=== PATIENT | male | born 1975 | race Caucasian/White ===

== ENCOUNTER 2017-07-06 18:08 | Emergency (ER) | payer BC ==
[~2017-07-06] VITALS: Ht 188 cm; Wt 155.0 kg
[2017-07-06 18:25] VITALS: TEMP 36.8; Ht 188 cm; Wt 155.0 kg
[2017-07-06] MEDS ORDERED: NEBI10TA2 PO (19:46)
--- NOTE | 2017-07-06 19:55 | EMERGENCY ROOM VISIT NOTE ---
History Report prepared by Leeanne: Luzma Duenas Under the Supervision of: Dr. Anuj Ingram M.D. First contact with patient: 19:16 Chief Complaint: CONSTIPATION Stated Complaint: POSSIBLE BOWEL BLOCKAGE Nursing Triage Summary: patient states he was dx at [facility] with diverticulitis on wednesday. patient c/o nausea abdominal pain and diarrhea. "I feel like I may be blocked" History of Present Illness The patient is a 42 year old male with a past medical history of Diverticulitis who presents to the ED with a cc of an episode of constipation beginning a week ago. The patient states he went to [facility] a week ago to treat a diverticulitis fare up and they put him on two antibiotics. He notes he has still been having 1-2 bowel movements a day, but that the sizing is very tiny. He notes he has tried stool softeners with no relief. Positive diarrhea, melena, and flank pain when trying to defecate. Negative nausea and vomiting. Patient's records were obtained and results of his CT of his Abdomen and Pelvis are below. Mild sigmoid diverticulitis without evidence of perforation or other complication. No other acute process seen in the abdomen or pelvis. Hepatic steatosis. Source of History: patient Onset: a week ago Position: other (global) Quality: other (global) Timing: other (episode) Associated Symptoms: + melena, + diarrhea, No nausea, No vomiting Note: The patient complains of flank pain when trying to defecate. Review of Systems See HPI for pertinent positives and negatives. A total of ten systems were reviewed and were otherwise negative. Past Medical & Surgical Medical Problems: (1) Diverticulitis (2) HTN (hypertension) Surgical Problems: (1) H/O hernia repair Family History Patient reports no known family medical history. Social History Smoking Status: Former Smoker Smokeless Tobacco Use: Yes Alcohol Use: occasionally Drug Use: none Marital Status: single Housing Status: lives alone Current/Historical Medications Scheduled Dicyclomine Hcl (Bentyl), 20 MG PO QD Nebivolol Hcl (Bystolic), 10 MG PO DAILY Allergies Coded Allergies: No Known Allergies (Unverified , 07/06/17) Physical Exam Vital Signs Date Time Temp Pulse Resp B/P (MAP) Pulse Ox O2 Delivery O2 Flow Rate FiO2 07/06/17 21:53 62 17 155/103 97 Room Air 07/06/17 20:12 65 07/06/17 20:07 65 18 142/96 95 Room Air 07/06/17 18:25 36.8 68 20 165/102 97 Room Air Physical Exam GENERAL: Awake, alert, well-appearing, NAD HENT: Normocephalic, atraumatic. EYES: Normal conjunctiva. Sclera non-icteric. NECK: Supple. No nuchal rigidity. FROM. RESPIRATORY: CTAB, no rhonchi, wheezing, crackles CARDIAC: RRR, no MRG ABDOMEN: Soft, NTND, BS+, no masses RECTAL: No masses palpated, no impaction, no hemorrhoids, no fissures, Hemoccult negative. MSK: No chest wall TTP, no LE edema NEURO: GCS 15, CN 2-12 intact, moves all 4s on command SKIN: No rash or jaundice noted. Medical Decision & Procedures ER Provider Diagnostic Interpretation: Radiology results as stated below per my review and radiologist interpretation: ABDOMEN 2VIEW W/PA CHEST RTN CLINICAL HISTORY: 42 years-old Male presenting with ABDOMINAL PAIN/GI. TECHNIQUE: PA view of the chest and supine and upright views of the abdomen were obtained. COMPARISON: None. FINDINGS: Cardiomediastinal silhouette normal. Lungs and pleural spaces clear. No calcifications project over the renal shadows. Multiple phleboliths noted. Normal bowel gas pattern. No evidence of free intraperitoneal gas, pneumatosis, or portal venous gas. Osseous structures normal. IMPRESSION: 1. No acute cardiopulmonary disease. No radiographic evidence of acute intra-abdominal pathology. Electronically signed by: Madhu Milligan M.D. 07/06/2017 8:53 PM Dictated Date/Time: 07/06/2017 8:52 PM Laboratory Results 07/06/17 19:50 Red Blood Count 5.31, Mean Corpuscular Volume 93.8, Mean Corpuscular Hemoglobin 30.9, Mean Corpuscular Hemoglobin Concent 32.9, Mean Platelet Volume 10.9, Neutrophils (%) (Auto) 64.4, Lymphocytes (%) (Auto) 24.2, Monocytes (%) (Auto) 8.3, Eosinophils (%) (Auto) 2.1, Basophils (%) (Auto) 0.6, Neutrophils # (Auto) 5.14, Lymphocytes # (Auto) 1.93, Monocytes # (Auto) 0.66, Eosinophils # (Auto) 0.17, Basophils # (Auto) 0.05 07/06/17 19:50 Test 07/06/17 19:45 07/06/17 19:50 Urine Color YELLOW Urine Appearance CLEAR (CLEAR) Urine pH 5.5 (4.5-7.5) Urine Specific [place] 1.018 (1.000-1.030) Urine Protein NEG (NEG) Urine Glucose (UA) NEG (NEG) Urine Ketones NEG (NEG) Urine Occult Blood NEG (NEG) Urine Nitrite NEG (NEG) Urine Bilirubin NEG (NEG) Urine Urobilinogen NEG (NEG) Urine Leukocyte Esterase SMALL (NEG) Urine WBC (Auto) 1-5 /hpf (0-5) Urine RBC (Auto) 0-4 /hpf (0-4) Urine Hyaline Casts (Auto) 1-5 /lpf (0-5) Urine Epithelial Cells (Auto) 0-5 /lpf (0-5) Urine Bacteria (Auto) NEG (NEG) White Blood Count 7.98 K/uL (4.8-10.8) Red Blood Count 5.31 M/uL (4.7-6.1) Hemoglobin 16.4 g/dL (14.0-18.0) Hematocrit 49.8 % (42-52) Mean Corpuscular Volume 93.8 fL (80-100) Mean Corpuscular Hemoglobin 30.9 pg (25-34) Mean Corpuscular Hemoglobin Concent 32.9 g/dl (32-36) Platelet Count 260 K/uL (130-400) Mean Platelet Volume 10.9 fL (7.4-10.4) Neutrophils (%) (Auto) 64.4 % Lymphocytes (%) (Auto) 24.2 % Monocytes (%) (Auto) 8.3 % Eosinophils (%) (Auto) 2.1 % Basophils (%) (Auto) 0.6 % Neutrophils # (Auto) 5.14 K/uL (1.4-6.5) Lymphocytes # (Auto) 1.93 K/uL (1.2-3.4) Monocytes # (Auto) 0.66 K/uL (0.11-0.59) Eosinophils # (Auto) 0.17 K/uL (0-0.5) Basophils # (Auto) 0.05 K/uL (0-0.2) RDW Standard Deviation 40.7 fL (36.4-46.3) RDW Coefficient of Variation 12.0 % (11.5-14.5) Immature Granulocyte % (Auto) 0.4 % Immature Granulocyte # (Auto) 0.03 K/uL (0.00-0.02) Anion Gap 6.0 mmol/L (3-11) Est Creatinine Clear Calc Drug Dose 128.9 ml/min Estimated GFR () 87.1 Estimated GFR (Non- 75.2 BUN/Creatinine Ratio 11.7 (10-20) Calcium Level 9.8 mg/dl (8.5-10.1) Total Bilirubin 0.4 mg/dl (0.2-1) Direct Bilirubin < 0.1 mg/dl (0-0.2) Aspartate Amino Transf (AST/SGOT) 46 U/L (15-37) Alanine Aminotransferase (ALT/SGPT) 52 U/L (12-78) Alkaline Phosphatase 58 U/L (45-117) Total Protein 8.4 gm/dl (6.4-8.2) Albumin 4.0 gm/dl (3.4-5.0) Lipase 386 U/L (73-393) Laboratory results reviewed by me Medications Administered Medications (Trade) Dose Ordered Sig/Kasey Route Start Time Stop Time Status Last Admin Dose Admin Sodium Chloride 1,000 ml @ 999 mls/hr Q1H1M STAT IV 07/06/17 19:37 07/06/17 20:37 DC 07/06/17 20:07 999 MLS/HR Dicyclomine HCl (Bentyl Tab) 20 mg ONE STAT PO 07/06/17 19:37 07/06/17 19:39 DC 07/06/17 20:06 20 MG ED Course 1928: The patient was evaluated in room C11B. A complete history and physical exam was performed. 2218: I reevaluated the patient. Discussed results and discharge instructions: he verbalized understanding and agreement. The patient is ready for discharge. Medical Decision Differential diagnoses include diverticulitis, UTI, mass, constipation, medication side effects, impaction. Patient was seen and evaluated at the bedside. Patient did have a recent diagnosis of diverticulitis and a just completed his antibiotic treatment. Patient was stating that he was having stools of smaller caliber and was feeling mildly constipated. Patient's CT scan was obtained which did not state that the patient had any masses. Patient has no family history of colon cancer and has not had a colonoscopy. Patient and blood work that was completed including a UA as well as a chest x-ray and abdomen x-ray. Patient had fairly unremarkable blood work and had a clear chest film and no evidence of intra- abdominal pathology on his abdominal film. Patient was feeling improved. Patient did have a rectal exam which showed no gross blood was Hemoccult negative and no evidence of masses, hemorrhoids, fissures. She was told to continue symptomatic treatment at home with docusate, senna, MiraLAX, and could try some lactulose. Patient was also given Bentyl. Patient was given strict follow-up, discharge, and return precautions as patient is very well-appearing does not have a medical or surgical emergency at this time. Patient agreed with plan of care patient was safely discharged home. Impression Primary Impression: Constipation Scribe Attestation The scribe's documentation has been prepared under my direction and personally reviewed by me in its entirety. I confirm that the note above accurately reflects all work, treatment, procedures, and medical decision making performed by me. Departure Information Dispostion Home / Self-Care Prescriptions Dicyclomine Hcl (BENTYL) 20 Mg Tab 20 MG PO QD for 7 Days, #7 TAB Prov: Anuj Ingram M.D. 07/06/17 Referrals No Doctor, Assigned (PCP) Forms HOME CARE DOCUMENTATION FORM, IMPORTANT VISIT INFORMATION Patient Instructions Diet High Fiber Dc, ED Constipation, [facility] Additional Instructions Please return to the emergency department if you have worsening or recurrent symptoms not amenable to at-home treatment. Please call for a follow-up appointment with her primary care physician. Please take your medications as prescribed. If you have other concerns and/or complaints please feel free to also call your primary care physician's office or return the ED for further evaluation, management, and treatment. You may take 600 mg Ibuprofen every 6 hours as needed for pain with food for no more than 2 consecutive days. You may take tylenol 1000mg every 6 hours as needed for pain. You may take motrin and tylenol separately or at the same time. Take bentyl for pain. Also for constipation obtain docusate, senna, and miralax and take as directed on packaging. You may also try taking lactulose which may help stimulate a bowel movement as well. You have been examined and treated today on an emergency basis only. This is not a substitute for, or an effort to provide, complete comprehensive medical care. It is impossible to recognize and treat all injuries or illnesses in a single emergency department visit. It is therefore important that you follow up closely with [facility]. Call as soon as possible for an appointment. Thank you for your time and consideration. I look forward to speaking with you again soon. Please don't hesitate to call us if you have any questions. Work Instructions Return To Work: 1 day Problem Qualifiers Primary Impression: Constipation Constipation type: unspecified constipation type Qualified Codes: K59.00 - Constipation, unspecified
[2017-07-06] MEDS: DICYCLOMINE HCL 20 MG TAB PO STA (20:06)
[2017-07-06] MEDS: SODIUM CHLORIDE 0.9% 1000ML 1,000 ML IV STA (20:07)
[2017-07-06 20:14] LABS: BASO % 0.6 %; BASO ABS # 0.05 K/uL (0-0.2); COMPLETE YES; EOS % 2.1 %; HEMATOCRIT 49.8 % (42-52); IG% 0.4 %; LYMPH % 24.2 %; LYMPH ABS # 1.93 K/uL (1.2-3.4); MEAN CELL VOLUME 93.8 fL (80-100); MEAN CORPUSCULAR HEMOGLOBIN 30.9 pg (25-34); MEAN CORPUSCULAR HGB CONC 32.9 g/dl (32-36); MEAN PLATELET VOLUME 10.9 fL (7.4-10.4); MONO % 8.3 %; NEUT % 64.4 %; PLATELET COUNT 260 K/uL (130-400); RED BLOOD COUNT 5.31 M/uL (4.7-6.1); WHITE BLOOD COUNT 7.98 K/uL (4.8-10.8)
[2017-07-06 20:17] LABS: URINE APPEARANCE CLEAR (CLEAR); URINE BILIRUBIN NEG (NEG); URINE COLOR YELLOW; URINE EPITHELIAL CELL AUTO 0-5 /lpf (0-5); URINE NITRITE NEG (NEG); URINE PH 5.5 (4.5-7.5); URINE SPECIFIC GRAVITY 1.018 (1.000-1.030); UROBILINOGEN NEG (NEG); ZZUR CULT IF INDIC CLEAN CATCH NO
[2017-07-06 20:26] LABS: MANUAL MICROSCOPIC REQUIRED? NO; REVIEW REQ? NO
[2017-07-06 20:32] LABS: ALT/SGPT 52 U/L (12-78); BLOOD UREA NITROGEN 14 mg/dl (7-18); BUN/CREATININE RATIO 11.7 (10-20); CALCIUM 9.8 mg/dl (8.5-10.1); CARBON DIOXIDE 29 mmol/L (21-32); CHLORIDE 105 mmol/L (98-107); GLUCOSE 89 mg/dl (70-99); POTASSIUM 4.1 mmol/L (3.5-5.1); SODIUM 140 mmol/L (136-145)
[2017-07-06 20:35] LABS: ALKALINE PHOSPHATASE 58 U/L (45-117); AST/SGOT 46 U/L (15-37)
--- NOTE | 2017-07-06 20:55 | DIAGNOSTIC IMAGING REPORT ---
ABDOMEN 2VIEW W/PA CHEST RTN CLINICAL HISTORY: 42 years-old Male presenting with ABDOMINAL PAIN/GI. TECHNIQUE: PA view of the chest and supine and upright views of the abdomen were obtained. COMPARISON: None. FINDINGS: Cardiomediastinal silhouette normal. Lungs and pleural spaces clear. No calcifications project over the renal shadows. Multiple phleboliths noted. Normal bowel gas pattern. No evidence of free intraperitoneal gas, pneumatosis, or portal venous gas. Osseous structures normal. IMPRESSION: 1. No acute cardiopulmonary disease. No radiographic evidence of acute intra-abdominal pathology. Electronically signed by: Madhu Milligan M.D. 07/06/2017 8:53 PM Dictated Date/Time: 07/06/2017 8:52 PM
[2017-07-06 21:53] VITALS: BP 155/103; PULSE 62; O2SAT 97
[2017-07-06] MEDS ORDERED: DICY20TA35 PO (22:15)
== END 2017-07-06 22:20 | disposition home or self-care (01) ==
LOC: C.EDB 18:10 → C.EDC 22:20
DX: K59.00 Constipation, unspecified (principal); K57.92 Diverticulitis of intestine, part unspecified, without perforation or abscess without bleeding; I10 Essential (primary) hypertension; Z79.899 Other long term (current) drug therapy; Z87.891 Personal history of nicotine dependence